=== PATIENT | male | born 1940 | race Caucasian/White ===

== ENCOUNTER 2018-06-09 13:15 | Emergency (ER) | payer OTHER ==
[~2018-06-09] VITALS: Ht 177.8 cm; Wt 88.5 kg
[2018-06-09] MEDS ORDERED: DOXYCYCLINE 10100 MG PO (14:16)
[2018-06-09 14:30] LABS: HEMOGLOBIN 17.5 gm/dL (14.0-18.0); MCH 31.8 pg (26.0-34.0); MCHC 34.9 g/dL (28.0-37.0); PLATELET COUNT 140 thou/uL (150-400); WBC 7.3 thou/uL (4.0-11.0)
[2018-06-09 14:39] LABS: ANION GAP 8 mmol/L (7-16); BUN 14 mg/dL (7-18); CHLORIDE 102 mmol/L (98-107); CO2 29 mmol/L (21-32); CREATININE 1.2 mg/dL (0.7-1.3); GLUCOSE 112 mg/dL (74-106); POTASSIUM 4.1 mmol/L (3.5-5.1); SODIUM 139 mmol/L (136-145)
[2018-06-09 14:48] LABS: ALBUMIN 3.9 g/dL (3.4-5.0); MAGNESIUM 2.1 mg/dL (1.8-2.4); SGOT 45 U/L (15-37); SGPT 54 U/L (30-65); TOTAL PROTEIN 7.6 g/dL (6.4-8.2); TROPONIN-I <0.06 ng/mL (<0.06)
[2018-06-09 14:53] LABS: ABSOLUTE NEUTROPHILS 4.5 thou/uL (1.4-8.2)
[2018-06-09] MEDS ORDERED: VENTOLIN HFA 1818 GM INH (15:45)
[2018-06-09] MEDS ORDERED: PREDNISONE 20 M20 MG PO (15:45)
[2018-06-09] MEDS ORDERED: TESSALON PERLE100 MG PO (15:45)
[2018-06-09 16:19] VITALS: BP 161/78
--- NOTE | 2018-06-10 08:06 | EKG ---
[place] [address] [facility] [place] [address] ELECTROCARDIOGRAM REPORT Name: JUANA MITCHELL [id number] Admission: 06/09/18 Attend Phys: Discharge: 06/09/18 Date of : 40 Report #: [id number] THIS REPORT FOR: //name// [facility] ED Test Date: 2018-06-09 Test Time: 14:29:24 Pat Name: JUANA FLIPCHIDI Department: Room: Gender: M Weld Fitter: [facility] : 1940 Requested By: Andrés Shin Order Number: [id number] MD: Fidencio Brantley Measurements Intervals [place] Rate: 87 P: 25 [place]: 170 QRS: -7 QRSD: 97 T: 46 QT: 334 QTc: 402 Interpretive Statements Sinus rhythm Inferior infarct, old Poor R wave progression No previous ECG available for comparison Electronically Signed On 06-10-2018 8:06:27 [employer] by Fidencio Brantley [email or web address] <ELECTRONICALLY SIGNED> By: Fidencio Brantley MD, [facility] 06/10/18 0806 1429 1429 Fidencio Brantley MD, FACC /EPI
== END 2018-06-09 16:20 | disposition home or self-care (01) ==
LOC: ER 13:15
PROVIDERS: Emergency Medicine
DX: J18.9 Pneumonia, unspecified organism (principal); J98.01 Acute bronchospasm